=== PATIENT | female | born 1985 | race African-American/Black ===

== ENCOUNTER 2023-12-06 06:00 | Inpatient (IN) | payer OTHER ==
[2023-12-06] MEDS ORDERED: CITRIC ACID/SODIUM CITRATE 30 ML UNIT-DOSE CUP PO ONE (06:20)
[2023-12-06] MEDS ORDERED: ELECTROLYTE-148 SOLN 500 ML IV ONE (06:20)
[2023-12-06 06:40] VITALS: BMI 41.0
[2023-12-06] MEDS ORDERED: ELECTROLYTE-148 SOLN 1,000 ML IV SCH ×2 (06:50→09:00)
[2023-12-06] MEDS ORDERED: morphine SULFATE/PF 1 MG/2 ML (2cc Syringe - QUVA) ONE (08:41)
[2023-12-06] MEDS ORDERED: FENTANYL CITRATE/PF 50 MCG/ML VIAL ONE (08:42)
[2023-12-06] MEDS ORDERED: KETOROLAC TROMETHAMINE 30 MG/1 ML VIAL ONE (09:38)
[2023-12-06] MEDS ORDERED: ceFAZolin SODIUM 1 GM VIAL ONE (09:38)
[2023-12-06] MEDS ORDERED: ONDANSETRON 4 MG/2 ML VIAL ONE (09:38)
[2023-12-06] MEDS ORDERED: OXYTOCIN 10 UNITS/ML VIAL ONE (09:38)
[2023-12-06] MEDS ORDERED: PHENYLEPHRINE HCL 10 MG/1 ML SINGLE DOSE VIAL ONE (09:38)
[2023-12-06] MEDS ORDERED: KETAMINE HCL 200 MG/20 ML VIAL ONE (10:04)
[2023-12-06] MEDS ORDERED: ONDANSETRON 4 MG/2 ML VIAL IVPB PRN (10:53)
[2023-12-06] MEDS ORDERED: morphine SULFATE/PF 1 MG/2 ML (2cc Syringe - QUVA) EP ONE (11:01)
[2023-12-06] MEDS ORDERED: ONDANSETRON 4 MG/2 ML VIAL IVPUSH PRN (11:01)
[2023-12-06] MEDS ORDERED: METHYLERGONOVINE MALEATE 0.2 MG TABLET (FP) PO PRN (11:30)
[2023-12-06] MEDS ORDERED: OXYTOCIN 20 UNITS in 0.9% NS 20 UNIT/1,000 ML INFUS.BAG IV ONE (11:34)
[2023-12-06] MEDS ORDERED: ACETAMINOPHEN INJECTION 100 ML IVPB ONE (11:34)
[2023-12-06] MEDS: IBUPROFEN 800 MG/8 ML IJ IVPB SCH ×2 (11:43→20:30)
[2023-12-06] MEDS ORDERED: ACETAMINOPHEN 1000 MG/100 ML BAG IVPB ONE (12:00)
[2023-12-06] MEDS: OXYTOCIN 20 UNITS in 0.9% NS 20 UNIT/1,000 ML INFUS.BAG IV SCH (12:38)
[2023-12-06] MEDS: ACETAMINOPHEN 1000 MG/100 ML BAG IVPB SCH (18:46)
[2023-12-06] MEDS: SENNOSIDES/DOCUSATE COMBO (SENNA PLUS) TABLET (UD) PO SCH (22:00)
[2023-12-07] MEDS: ACETAMINOPHEN 1000 MG/100 ML BAG IVPB SCH ×3 (00:02→11:27)
[2023-12-07] MEDS: IBUPROFEN 800 MG/8 ML IJ IVPB SCH (02:43)
[2023-12-07] MEDS: OXYTOCIN 20 UNITS in 0.9% NS 20 UNIT/1,000 ML INFUS.BAG IV SCH ×2 (02:59→11:31)
[2023-12-07 07:43] LABS: BASO % 0.2 % (0-2.0); EOS % 0.2 % (0-4.5); HEMATOCRIT 29.9 % (32.4-45.2); HEMOGLOBIN 10.4 GM/dL (10.7-15.3); MCH 31.7 pg (25.7-33.7); MCHC 34.7 g/dl (32.0-36.0); MEAN CELL VOLUME 91.4 fl (80-96); MEAN PLT VOLUME 7.2 fl (7.5-11.1); MONO % 9.7 % (3.8-10.2); NEUT % 80.9 % (42.8-82.8); PLATELET COUNT 186 10^3/uL (134-434); RBC 3.27 M/mm3 (3.60-5.2); RDW 15.2 % (11.6-15.6); WHITE BLOOD COUNT 9.9 K/mm3 (4.0-10.0)
[2023-12-07] MEDS: ELECTROLYTE-148 SOLN 1,000 ML IV SCH (08:38)
[2023-12-07] MEDS: SIMETHICONE 80 MG TAB.CHEW (FP) PO PRN ×2 (08:51→14:32)
[2023-12-07] MEDS: IBUPROFEN 600 MG TABLET (FP) PO PRN ×2 (08:51→14:32)
[2023-12-07] MEDS ORDERED: oxyCODONE HCL 5 MG TABLET PO PRN (09:00)
[2023-12-07] MEDS: ENOXAPARIN NA (PORCINE) 40 MG/0.4 ML DISP.SYRIN SQ SCH (09:44)
[2023-12-07] MEDS ORDERED: BISACODYL 10 MG SUPP.RECT RC PRN (10:53)
[2023-12-07] MEDS: FERROUS SO4 325 MG TABLET (FP) PO SCH ×2 (11:31→23:20)
[2023-12-07] MEDS: ACETAMINOPHEN 1000 MG/100 ML BAG IVPB PRN ×2 (18:03→23:21)
[2023-12-07] MEDS: SENNOSIDES/DOCUSATE COMBO (SENNA PLUS) TABLET (UD) PO SCH (23:20)
[2023-12-08] MEDS: ACETAMINOPHEN 1000 MG/100 ML BAG IVPB PRN ×2 (05:32→12:15)
[2023-12-08] MEDS: ENOXAPARIN NA (PORCINE) 40 MG/0.4 ML DISP.SYRIN SQ SCH (09:40)
[2023-12-08] MEDS: FERROUS SO4 325 MG TABLET (FP) PO SCH ×2 (09:40→21:10)
[2023-12-08] MEDS: IBUPROFEN 600 MG TABLET (FP) PO PRN ×2 (09:41→18:13)
[2023-12-08] MEDS: SIMETHICONE 80 MG TAB.CHEW (FP) PO PRN ×3 (09:41→21:08)
[2023-12-08] MEDS ORDERED: ACETAMINOPHEN 1000 MG/100 ML BAG IVPB PRN (13:06)
[2023-12-08] MEDS: ACETAMINOPHEN 500 MG TABLET (FP) PO PRN (21:09)
[2023-12-08] MEDS: SENNOSIDES/DOCUSATE COMBO (SENNA PLUS) TABLET (UD) PO SCH (21:09)
[2023-12-09] MEDS: IBUPROFEN 600 MG TABLET (FP) PO PRN ×3 (02:39→18:24)
[2023-12-09] MEDS: ACETAMINOPHEN 500 MG TABLET (FP) PO PRN ×3 (09:29→21:57)
[2023-12-09] MEDS: ENOXAPARIN NA (PORCINE) 40 MG/0.4 ML DISP.SYRIN SQ SCH (09:31)
[2023-12-09] MEDS: FERROUS SO4 325 MG TABLET (FP) PO SCH ×2 (09:31→21:54)
[2023-12-09] MEDS: SIMETHICONE 80 MG TAB.CHEW (FP) PO PRN ×3 (12:07→22:01)
[2023-12-09 21:54] VITALS: TEMP 98.2
[2023-12-09] MEDS: SENNOSIDES/DOCUSATE COMBO (SENNA PLUS) TABLET (UD) PO SCH (21:54)
[2023-12-10] MEDS: SIMETHICONE 80 MG TAB.CHEW (FP) PO PRN (04:08)
[2023-12-10] MEDS: IBUPROFEN 600 MG TABLET (FP) PO PRN ×2 (04:09→10:50)
[2023-12-10] MEDS: ACETAMINOPHEN 500 MG TABLET (FP) PO PRN (05:51)
[2023-12-10] MEDS: ENOXAPARIN NA (PORCINE) 40 MG/0.4 ML DISP.SYRIN SQ SCH (09:38)
[2023-12-10] MEDS: FERROUS SO4 325 MG TABLET (FP) PO SCH (09:38)
[2023-12-10 11:39] VITALS: BP 124/71; PULSE 96; RESP 16
== END 2023-12-10 13:00 | disposition home or self-care (01) | DRG 788 ==
LOC: JLDR 06:00 → J3W 13:15
PROVIDERS: ADMIT Specialist; ATTEND Specialist
PROC: 10D00Z1 Extraction of Products of Conception, Low, Open Approach (ICD-10-PCS; principal; 2023-12-06)
PROC: 0DNW0ZZ Release Peritoneum, Open Approach (ICD-10-PCS; 2023-12-06)
DX: O34.219 Maternal care for unspecified type scar from previous cesarean delivery (principal); O36.63X0 Maternal care for excessive fetal growth, third trimester, not applicable or unspecified; O34.13 Maternal care for benign tumor of corpus uteri, third trimester; D25.9 Leiomyoma of uterus, unspecified; N73.6 Female pelvic peritoneal adhesions (postinfective); Z3A.38 38 weeks gestation of pregnancy; Z37.0 Single live birth
CPT/HCPCS: 36415; 85025; 86850; 86900; 86901; 88307-TC; 94010; J0131

== ENCOUNTER 2024-07-31 09:26 | Emergency (ER) | payer OTHER ==
[2024-07-31 10:21] VITALS: BP 128/83; PULSE 78; RESP 16; TEMP 98.4; BMI 37.8
[2024-07-31] MEDS ORDERED: ACETAMINOPHEN 500 MG TABLET (FP) ONE (11:44)
[2024-07-31] MEDS ORDERED: LIDOCAINE 4% PATCH TP ONE (11:44)
[2024-07-31] MEDS: LIDOCAINE 4% PATCH TP ONE (11:52)
[2024-07-31] MEDS: ACETAMINOPHEN 500 MG TABLET (FP) PO ONE (11:53)
[2024-07-31] MEDS ORDERED: LIDOCAINE PATCH REMOVAL MC SCH (22:00)
== END 2024-07-31 12:24 | disposition home or self-care (01) ==
LOC: JERFT 09:26
DX: M54.2 Cervicalgia (principal); V43.52XA Car driver injured in collision with other type car in traffic accident, initial encounter; Y92.410 Unspecified street and highway as the place of occurrence of the external cause
CPT/HCPCS: 99283-25